=== PATIENT | female | born 1975 | race Two or more races ===

== ENCOUNTER 2018-06-22 05:55 | Day surgery (SDC) | payer OTHER | END 2018-06-22 11:00 | disposition home or self-care (01) | LOC: AMB-ENDOS 05:55 | DX: K57.32 Diverticulitis of large intestine without perforation or abscess without bleeding (principal); K57.30 Diverticulosis of large intestine without perforation or abscess without bleeding; K64.1 Second degree hemorrhoids; Z12.11 Encounter for screening for malignant neoplasm of colon ==

== ENCOUNTER 2018-12-06 12:15 | Inpatient (IN) | payer OTHER ==
[~2018-12-06] VITALS: Ht 167.6 cm; Wt 86.2 kg
[2018-12-07] MEDS ORDERED: SYNTHROID150 MCG PO (10:32)
[2018-12-07] MEDS ORDERED: METOPROLOL SUCC25 MG PO (10:32)
[2018-12-07] MEDS ORDERED: TAMBOCOR150 MG PO (10:32)
== END 2018-12-14 16:03 | disposition home or self-care (01) | DRG 331 ==
LOC: O/R 12-11 07:15 → SURG 12-11 07:15 → SURH 12-11 12:15 → SURG 12-11 14:05
PROVIDERS: ADMIT Colon & Rectal Surgery
PROC: 0DJD8ZZ Inspection of Lower Intestinal Tract, Via Natural or Artificial Opening Endoscopic (ICD-10-PCS; 2018-12-11)
PROC: 0DTN4ZZ Resection of Sigmoid Colon, Percutaneous Endoscopic Approach (ICD-10-PCS; principal; 2018-12-11 14:00)
DX: K57.32 Diverticulitis of large intestine without perforation or abscess without bleeding (principal); I11.9 Hypertensive heart disease without heart failure; E03.8 Other specified hypothyroidism; E66.09 Other obesity due to excess calories

== ENCOUNTER 2020-01-17 07:55 | Day surgery (SDC) | payer OTHER ==
[~2020-01-17 07:55] MED LIST: METOPROLOL SUCC25 MG PO; SYNTHROID150 MCG PO; TAMBOCOR150 MG PO
== END 2020-01-17 17:15 | disposition home or self-care (01) ==
LOC: AMB-ENDOS 07:55 → ADM 12:15 → AMB-ENDOS 17:15
DX: K57.32 Diverticulitis of large intestine without perforation or abscess without bleeding (principal); K57.30 Diverticulosis of large intestine without perforation or abscess without bleeding; Z12.11 Encounter for screening for malignant neoplasm of colon